=== PATIENT | female | born 1990 | race American Indian/Alaskan Native ===

== ENCOUNTER 2019-01-10 10:07 | Emergency (ER) | payer SELFPAY ==
[2019-01-10] MEDS ORDERED: SUBLIMAZE IV ONE (11:00)
[2019-01-10 11:29] LABS: BUN/Creatinine Ratio 12; Blood Urea Nitrogen 7 mg/dL (7-17); Calcium 9.2 mg/dL (8.4-10.2); Hemolysis Index 1
[2019-01-10 11:50] LABS: Hematocrit 26.6 % (30.3-42.9); Hemoglobin 7.9 gm/dl (10.1-14.3); Mean Corpuscular HGB Conc 30 % (30-34); Platelet Count 338 K/mm3 (140-440); Red Blood Count 4.26 M/mm3 (3.65-5.03); Red Cell Distribution Width 19.5 % (13.2-15.2)
[2019-01-10 11:53] LABS: Mean Corpuscular Volume 63 fl (79-97)
[2019-01-10 12:22] VITALS: BP 118/83
[2019-01-10 12:53] LABS: Basophils % (Manual) 0 % (0.0-1.8); Target Cells 1+; Total Cells Counted 100
[2019-01-10 12:54] LABS: Hypochromasia 2+; Tear Drop Cells Few
[2019-01-10 12:55] LABS: Platelet Estimate Consistent w Auto
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
== END 2019-01-10 16:12 | disposition home or self-care (01) ==
LOC: ED 10:07
DX: S92.144A Nondisplaced dome fracture of right talus, initial encounter for closed fracture (principal); D50.0 Iron deficiency anemia secondary to blood loss (chronic); V49.49XA Driver injured in collision with other motor vehicles in traffic accident, initial encounter; Y93.89 Activity, other specified; Y92.89 Other specified places as the place of occurrence of the external cause; Y99.8 Other external cause status
CPT/HCPCS: 29515; 36415; 70450; 72070; 72100; 73590; 73600; 73620; 73700; 80048; 84703; 85007; 85025; 96374; 99285; J3010

== ENCOUNTER 2022-04-26 09:14 | Emergency (ER) | payer MEDICAID ==
[2022-04-26 09:22] VITALS: BP 159/97
--- NOTE | 2022-04-26 10:30 | Cat Scan Report ---
CT HEAD WITHOUT CONTRAST INDICATION / CLINICAL INFORMATION: headache, 10 days . TECHNIQUE: Axial imaging performed from the skull apex through the skull base without the use of cont rast. Sagittal and coronal reformatted images. All CT scans at this location are performed using CT dose reduction for ALARA by means of automated exposure control. COMPARISON: None available. FINDINGS: CEREBRAL PARENCHYMA: No significant abnormality. No acute territorial infarct. HEMORRHAGE: None. EXTRA-AXIAL SPACES: Normal in size and morphology for the patient's age. VENTRICULAR SYSTEM: Normal in size and morphology for the patient's age. MIDLINE SHIFT OR HERNIATION: None. CEREBELLUM / BRAINSTEM: No significant abnormality. CALVARIUM: No significant abnormality. ORBITS: Normal as visualized. PARANASAL SINUSES / MASTOID AIR CELLS: Normal as visualized. SOFT TISSUES of HEAD: No significant abnormality. ADDITIONAL FINDINGS: None. IMPRESSION: No acute intracranial abnormality. Signer Name: Jordan Hampton Jr, MD Signed: 04/26/2022 10:26 AM Workstation Name: [id number]
[2022-04-26 10:32] LABS: Hematocrit 28.4 % (30.3-42.9); Hemoglobin 8.5 gm/dl (10.1-14.3); Mean Corpuscular HGB Conc 30 % (30-34); Platelet Count 490 K/mm3 (140-440)
[2022-04-26 10:36] LABS: Mean Corpuscular Volume 66 fl (79-97)
[2022-04-26 10:55] LABS: Alanine Aminotransferase 12 units/L (7-56); Albumin 3.3 g/dL (3.9-5); Blood Urea Nitrogen 3 mg/dL (7-17); Calcium 8.8 mg/dL (8.4-10.2); Hemolysis Index 9; Uric Acid 4.3 mg/dL (3.5-7.6)
[2022-04-26 10:56] LABS: BUN/Creatinine Ratio 8
[2022-04-26 11:56] LABS: Basophils % (Manual) 0 % (0.0-1.8); Eosinophils % (Manual) 0 % (0.0-4.3); Total Cells Counted 100
[2022-04-26 12:01] LABS: Anisocytosis 2+; Hypochromasia 2+; Platelet Estimate Consistent w Auto; Poikilocytosis Rare; Stomatocytes Rare
== END 2022-04-26 19:00 | disposition left against medical advice (07) ==
LOC: ED 09:14
DX: R51.9 Headache, unspecified (principal); Z53.21 Procedure and treatment not carried out due to patient leaving prior to being seen by health care provider
CPT/HCPCS: 36415; 70450; 80053; 83615; 84550; 85007; 85025